=== PATIENT | female | born 1940 | race Caucasian/White ===

== ENCOUNTER 2017-11-17 08:31 | Inpatient (IN) | payer OTHER ==
[~2017-11-17] VITALS: Ht 165.1 cm; Wt 64.9 kg
--- NOTE | ~2017-11-17 | 2DMMODE ---
[facility] [address] [place] [address] 2 D/M-MODE ECHOCARDIOGRAM Name: UBALDORED BRUCETTE Room #: 207-P ADM IN M.R.#: [id number] Admission: 11/17/17 Attend Phys: Janak Guo, Discharge: Date of : 42 Date of Service: 11/17/17 1430 Report #: [id number] THIS REPORT FOR: //name// APPROVED REPORT Study performed: 11/17/2017 13:29:30 EXAM: Comprehensive 2D, Doppler, and color-flow Echocardiogram Patient Location: Bedside Room #: 207 Status: routine BSA: 1.70 HR: 83 bpm BP: 99/57 mmHg Other Information Study Quality: Good Indications Atrial Fibrillation Syncope 2D Dimensions RVDd: 32.58 mm LVEF(%): 63.07 (>50%) IVSd: 9.37 (7-11mm) LVOT Diam: 19.19 (18-24mm) LVDd: 35.22 mm PWd: 9.37 (7-11mm) Ascending Ao: 30.58 (22-36mm) LVDs: 23.47 (25-40mm) Aortic Root: 36.19 mm IVC: 19.00 mm Matt's LVEF: 63.07 % Volumes Left Atrial Volume (Systole) Single Plane 4CH: 50.43 mL Single Plane 2CH: 54.98 mL LA ESV Index: 33.00 mL/m2 Aortic Valve AoV Peak Fam.: 0.88 m/s AO Peak Gr.: 3.12 mmHg LVOT Max P.79 mmHg LVOT Max V: 0.83 m/s MIGUEL Vmax: 2.73 cm2 Mitral Valve IVRT: 73.82 ms [facility] [address] [place] [address] 2 D/M-MODE ECHOCARDIOGRAM Name: RED FELTON ARNOLD Room #: [address] [place] [address] IN .R.#: [id number] Admission: 11/17/17 Attend Phys: Janak Guo, Discharge: Date of : 42 Date of Service: 11/17/17 1430 Report #: [id number] Pulmonary Valve PV Peak Fam.: 0.83 m/s PV Peak Gr.: 2.80 mmHg KY End Vmax: 0.93 m/s Tricuspid Valve TR Peak Fam.: 1.95 m/s TR Peak Gr.: 15.16 mmHg PA Pressure: 20.00 mmHg Left Ventricle The left ventricle is normal size. There is normal left ventricular wall thickness. The left ventricular systolic function is normal. The left ventricular ejection fraction is within the normal range. LVEF is 60-65%. This study is not technically sufficient to allow evaluation of the LV diastolic function due to atrial fibrillation. Right Ventricle The right ventricle is normal size. The right ventricular systolic function is normal. Atria Left atrium is at the upper limits of normal. The right atrium size is normal. Aortic Valve The aortic valve is normal in structure. No aortic regurgitation is present. There is no aortic valvular stenosis. Mitral Valve The mitral valve is normal in structure. Mild mitral regurgitation. No evidence of mitral valve stenosis. Tricuspid Valve The tricuspid valve is normal in structure. There is trace tricuspid regurgitation. Estimated PAP 20 mmHg. There is no pulmonary hypertension. Pulmonic Valve The pulmonary valve is normal in structure. Trace to mild pulmonic regurgitation. Great Vessels The aortic root is normal in size. IVC is normal in size and collapses >50% with inspiration. [facility] [address] [place] [address] 2 D/M-MODE ECHOCARDIOGRAM Name: PURNIMARED ARNOLD Room #: 207-P [facility] IN M.R.#: [id number] Admission: 11/17/17 Attend Phys: Janak Guo, Discharge: Date of : 42 Date of Service: 11/17/17 1430 Report #: [id number] Pericardium There is no pericardial effusion. <Conclusion> The left ventricle is normal size. There is normal left ventricular wall thickness. The left ventricular systolic function is normal. The right ventricle is normal size. Left atrium is at the upper limits of normal. There is no aortic valvular stenosis. Mild mitral regurgitation. There is trace tricuspid regurgitation. Estimated PAP 20 mmHg. There is no pericardial effusion. <ELECTRONICALLY SIGNED> By: Baldomero Hooker MD 11/17/17 [phone] Baldomero Hooker MD /INF
--- NOTE | ~2017-11-17 | EKG ---
[place] [address] [facility] [address] [place] [address] ELECTROCARDIOGRAM REPORT Name: SARAH FELTONPRIMO BARRETT Room #: 207-P ADM IN M.R.#: [id number] Admission: 11/17/17 Attend Phys: Janak Guo DO Discharge: Date of : 42 Report #: [id number] THIS REPORT FOR: //name// [facility] ED Test Date: 2017-11-17 Test Time: 08:39:23 Pat Name: RED FELTON Department: Room: [facility] Gender: F Commissary Officer: MIROSLAVA : 1940 Requested By: Andria Fang Order Number: [id number] MD: Pablo Smith Measurements Intervals [place] Rate: 129 P: RI: QRS: 72 QRSD: 88 T: 27 QT: 323 QTc: 474 Interpretive Statements Atrial fibrillation Borderline ST depression, diffuse leads Borderline prolonged QT interval Compared to ECG 08/13/2014 14:05:25 Atrial fibrillation has replaced sinus rhythm Electronically Signed On 11-19-2017 15:08:09 TELEPHONE INTERCEPTOR OPERATOR by Pablo Smith [email or web address] <ELECTRONICALLY SIGNED> By: Pablo Smith MD, [facility] 11/19/17 1508 [id number] Pablo Smith MD, [facility] /EPI
--- NOTE | ~2017-11-17 | HC ---
[facility] [address] [place] [address] CONSULTATION Name: RED FELTON Room #: 207-P [facility] IN M.R.#: [id number] Admission: 11/17/17 Attend Phys: Janak Guo DO Discharge: 11/20/17 Date of : 42 Report #: [id number] THIS REPORT FOR: //name// CC: Janak Arrington HISTORY OF PRESENT ILLNESS: This is a 76-year-old female patient referred for assessment and evaluation of atrial fibrillation. The patient has presented to the Emergency Room with episodes of dizziness and lightheadedness. She stated that she did have a syncopal episodes prior to admission and did hit her head, although did not apparently lose consciousness. Upon questioning, she states she has been having episodes like this for about 3-4 years, but had never been able to be captured or caught by her physicians. She does not have any syncope, near syncope and does not complain of chest pain, pressure, tightness or heaviness. In between these episodes, she is fine without any issues whatsoever. Her first syncopal episode was this one described above. She has no exertional tightness, heaviness or fullness. PAST MEDICAL HISTORY: 1. History of breast cancer, status post excisional biopsies. 2. Dyslipidemia. 3. Degenerative joint disease. 4. Acid peptic disease. 5. Stress incontinence. MEDICATIONS: At home are flaxseed oil, omega 3, Calcitrate ____, aspirin, CoQ10, red yeast rice, vitamin C, Genteal Gel drops ophthalmic, vitamin D3, VESIcare, Pepcid and alpha lipoic acid. ALLERGIES: No known drug allergies. PAST SURGICAL HISTORY: Significant for: 1. Excisional biopsies of her breast as stated above. 2. Colonoscopy. 3. D and C. 4. Tonsillectomy and adenoidectomy. ELECTROCARDIOGRAM: Demonstrated atrial fibrillation with rapid ventricular response of 129 beats per minute and nonspecific ST-T wave changes. SOCIAL HISTORY: The patient does not smoke or consume alcohol. Does not follow a particular exercise regimen or dietary restriction. FAMILY HISTORY: Noncontributory. REVIEW OF SYSTEMS: Except for symptoms previously mentioned and those commensurate with comorbid state, a 10-point review of system is negative. [address] [address] CONSULTATION Name: RED FELTON ARNOLD Room #: [address] [place] [address] IN M.R.#: [id number] Admission: 11/17/17 Attend Phys: Janak Guo DO Discharge: 11/20/17 Date of : 42 Report #: [id number] PHYSICAL EXAMINATION: GENERAL: Well-developed, well-nourished female resting comfortably in no acute distress. VITAL SIGNS: Noted and reviewed in the chart. HEENT: Normocephalic, atraumatic. Pupils are equal, round, reactive to light and accommodation. Extraocular muscles are intact. Sclerae and conjunctivae are anicteric. NECK: JVD is normal. Carotid upstrokes are bilaterally symmetrical. No bruits are heard. No thyromegaly. No lymphadenopathy. LUNGS: Clear to auscultation. No wheezes, rhonchi or crackles. No CVA tenderness. CARDIAC: This is an irregular rhythm, controlled rate. Soft systolic murmur. ABDOMEN: Soft, nontender, nondistended. Normal bowel sounds. EXTREMITIES: Without cyanosis, clubbing or edema. Distal pulses are intact. DTR symmetrical. NEUROLOGIC: Cranial nerves 2-12 are grossly normal and symmetrical. PSYCHIATRIC: Alert, oriented with normal affect. SKIN: Warm and dry. LABORATORY DATA: Potassium of 3.8, BUN and creatinine of 12 and 1.1. Thyroid studies demonstrate a TSH of 4.14, which is slightly elevated. Troponin is less than 0.04. H and H 13.3 and 38.9 with a platelet count of 129,000. RADIOLOGY: CT scan failed to demonstrate any acute intracranial processes. Chest x-ray is without acute changes. IMPRESSION: 1. Dizziness and lightheadedness clearly secondary to paroxysmal atrial fibrillation. She has been slowed on IV diltiazem and in view of her elevated CHADS-VASc score warrants anticoagulation. We discussed options and in individuals greater than 70 years of age, the Eliquis is the best option based on effectiveness of preventing embolic events and risk of bleeding. We will get that calculated for her daily dose and initiate. She will also need to have rate control and we had initiated oral diltiazem to control the rate. We will then complete full evaluation as an outpatient for ischemic origin since her echocardiogram showed no significant segmental abnormalities. 2. Dyslipidemia. Discussed [employer] step 1 diet with her. We will get her a handout from the office when available. 3. Acid peptic disease on medications and asymptomatic at the present time. <ELECTRONICALLY SIGNED> By: Joel Jauregui MD 12/01/17 1029 [id number] [id number] Joel Jauregui MD /nt
[~2017-11-17 08:31] MED LIST: ALLEGRA ALLERG180 MG PO; ALPHA LIPOIC A300 MG PO; ARIMIDEX1 MG PO; ASPIRIN EC81 M1 PO; CAL-CITRATE PL1 EACH PO; CO Q-10100 MG PO; DAILY VITE1 EACH PO; DETROL LA2 MG PO; FISH OIL 1,0001 EAC5 PO; FLAXSEED1000 MG PO; GENTEAL GEL DRO15 ML OPHTHALMIC; GLUCOSAMINE1000 MG PO; METAMUCIL PACK1 EACH PO; METAMUCIL197.2 GM PO; MULTIVITAMINS1 EAC7 PO; OMEGA-31000 M1 PO; PEPCID20 MG PO; RED YEAST RICE600 MG PO; VESICARE 5 MG TA5 M1 PO; VITAMIN C + RO500 MG PO; VITAMIN D1000 UNI1 PO; VITAMIN D5000 UNIT PO; VITAMINC500 PO; ZOFRAN ODT4 MG PO
[2017-11-17 08:37] VITALS: BP 125/62
[2017-11-17] MEDS ORDERED: VESICARE 5 MG TA5 MG PO (08:49)
[2017-11-17 09:10] LABS: ABSOLUTE NEUTROPHILS 3.1 thou/uL (1.4-8.2); BASOPHILS 0.6 % (0.0-2.0); EOSINOPHILS 0.4 % (0.0-3.0); HEMATOCRIT 38.9 % (37.0-47.0); HEMOGLOBIN 13.3 gm/dL (12.0-15.0); LYMPHOCYTES 20.5 % (24.0-44.0); MCH 31.1 pg (26.0-34.0); MCHC 34.1 g/dL (28.0-37.0); MCV 91.3 fL (80.0-100.0); MONOCYTES 9.1 % (1.0-8.0); PLATELET COUNT 129 thou/uL (150-400); POLYS 69.4 % (36.0-66.0); RBC 4.27 mil/uL (4.20-5.00); RDW 13.3 % (10.5-14.5); WBC 4.4 thou/uL (4.0-11.0)
[2017-11-17 09:22] LABS: ANION GAP 11 mmol/L (7-16); BUN 12 mg/dL (7-18); CALCIUM 8.8 mg/dL (8.5-10.1); CHLORIDE 104 mmol/L (98-107); CO2 25 mmol/L (21-32); CREATININE 1.1 mg/dL (0.6-1.0); GLUCOSE 125 mg/dL (74-106); POTASSIUM 3.8 mmol/L (3.5-5.1); SODIUM 140 mmol/L (136-145)
[2017-11-17 09:24] LABS: APTT 37.3 Seconds (24.5-32.8); PROTIME 9.9 Seconds (9.3-11.4)
[2017-11-17 09:31] LABS: MAGNESIUM 1.7 mg/dL (1.8-2.4); TROPONIN-I < 0.04 ng/mL (<0.06)
[2017-11-17 10:20] LABS: URINE BILIRUBIN NEGATIVE (Negative); URINE BLOOD NEGATIVE (Negative); URINE CLARITY CLEAR; URINE COLOR YELLOW; URINE GLUCOSE-RANDOM* NEGATIVE (Negative); URINE KETONES 1+ (Negative); URINE LEUKOCYTES-REFLEX NEGATIVE (Negative); URINE NITRITE-REFLEX NEGATIVE (Negative); URINE PROTEIN (DIPSTICK) NEGATIVE (Negative); URINE UROBILINOGEN 0.2 E.U./dl (0.2-1.0)
[2017-11-17 11:37] VITALS: BP 112/62
[2017-11-17 12:11] VITALS: BP 99/57
[2017-11-17 16:23] VITALS: BP 112/51
[2017-11-17 20:40] VITALS: BP 115/61
[2017-11-18 00:08] VITALS: BP 115/61
[2017-11-18 04:25] VITALS: BP 104/53
[2017-11-18 04:54] LABS: ANION GAP 7 mmol/L (7-16); BUN 13 mg/dL (7-18); CALCIUM 8.5 mg/dL (8.5-10.1); CHLORIDE 107 mmol/L (98-107); CHOLESTEROL 140 mg/dL (<200); CO2 25 mmol/L (21-32); CREATININE 0.8 mg/dL (0.6-1.0); GLUCOSE 97 mg/dL (74-106); HDL CHOLESTEROL 44 mg/dL (>40); LDL CHOLESTEROL 78 mg/dL (<100); POTASSIUM 4.5 mmol/L (3.5-5.1); SODIUM 139 mmol/L (136-145); TC:HDL 3.2 Ratio (Not establshd); TRIGLYCERIDE 90 mg/dL (<150); VLDL 18 mg/dL (<40)
[2017-11-18 07:22] VITALS: BP 96/51
[2017-11-18 11:14] VITALS: BP 93/48
[2017-11-18 15:06] VITALS: BP 95/59
[2017-11-18 20:20] VITALS: BP 121/59
[2017-11-19 04:12] VITALS: BP 126/74
[2017-11-19 07:45] VITALS: BP 120/64
[2017-11-19] MEDS ORDERED: ELIQUIS5 MG PO (08:08)
[2017-11-19 11:35] VITALS: BP 107/53
[2017-11-19 16:10] VITALS: BP 109/67
[2017-11-19 20:04] VITALS: BP 96/61
[2017-11-20 03:51] VITALS: BP 109/64
[2017-11-20 08:00] VITALS: BP 115/56
[2017-11-20] MEDS ORDERED: CARDIZEM CD180 MG PO (08:02)
[2017-11-20 10:33] VITALS: BP 115/56
[2017-11-20 10:38] VITALS: BP 115/56
[2017-11-20 11:44] VITALS: BP 115/56
== END 2017-11-20 11:20 | disposition home or self-care (01) | DRG 308 ==
LOC: ER 08:31 → 2N 10:44 → EROBS 10:44 → 2N 11:44 → ENTRNSPT 11-20 11:14 → EDTRNSPTSTS 11-20 11:15 → 2N 11-20 11:20
PROVIDERS: Emergency Medicine; Nurse Practitioner
DX: I48.0 Paroxysmal atrial fibrillation (principal); E43 Unspecified severe protein-calorie malnutrition; E87.6 Hypokalemia; E78.5 Hyperlipidemia, unspecified; K30 Functional dyspepsia; Z66 Do not resuscitate; M19.90 Unspecified osteoarthritis, unspecified site; E83.42 Hypomagnesemia; Z79.01 Long term (current) use of anticoagulants; Z82.49 Family history of ischemic heart disease and other diseases of the circulatory system; Z86.718 Personal history of other venous thrombosis and embolism; Z90.13 Acquired absence of bilateral breasts and nipples; Z85.3 Personal history of malignant neoplasm of breast; Z79.82 Long term (current) use of aspirin; Z79.899 Other long term (current) drug therapy; Z68.23 Body mass index [BMI] 23.0-23.9, adult
CPT/HCPCS: 10081

== ENCOUNTER → 2018-04-23 | Outpatient (CLI) | payer OTHER ==
[~2018-04-23] MED LIST changes: +CARDIZEM CD180 MG PO; +ELIQUIS5 MG PO; +VESICARE 5 MG TA5 MG PO
== END ==
LOC: NUC 08:36
DX: M85.89 Other specified disorders of bone density and structure, multiple sites (principal); E78.5 Hyperlipidemia, unspecified; I48.0 Paroxysmal atrial fibrillation; Z78.0 Asymptomatic menopausal state

== ENCOUNTER → 2019-07-25 | Outpatient (CLI) | payer OTHER | LOC: NUC 07-17 08:26 | DX: M85.80 Other specified disorders of bone density and structure, unspecified site (principal); E28.39 Other primary ovarian failure ==

== ENCOUNTER → 2020-09-11 | Outpatient (CLI) | payer OTHER | LOC: SJCVCIMAG 08:11 | PROVIDERS: ATTEND Internal Medicine | DX: I08.8 Other rheumatic multiple valve diseases (principal); I48.0 Paroxysmal atrial fibrillation; Z79.899 Other long term (current) drug therapy ==

== ENCOUNTER → 2020-10-05 | Outpatient (CLI) | payer OTHER | LOC: SJCVC 15:47 | PROVIDERS: ATTEND Internal Medicine | DX: R00.2 Palpitations (principal); I48.0 Paroxysmal atrial fibrillation; I25.10 Atherosclerotic heart disease of native coronary artery without angina pectoris; E78.00 Pure hypercholesterolemia, unspecified; Z88.8 Allergy status to other drugs, medicaments and biological substances ==

== ENCOUNTER → 2020-10-13 | Outpatient (CLI) | payer OTHER | LOC: SJCVCIMAG 09:14 | PROVIDERS: ATTEND Internal Medicine | DX: I08.1 Rheumatic disorders of both mitral and tricuspid valves (principal); I48.0 Paroxysmal atrial fibrillation; R00.2 Palpitations; I25.10 Atherosclerotic heart disease of native coronary artery without angina pectoris ==

== ENCOUNTER → 2021-09-13 | Outpatient (CLI) | payer OTHER | LOC: NUC 09:00 → RAD 09:18 → NUC 10:43 | PROVIDERS: ATTEND Internal Medicine Hematology & Oncology | DX: Z13.820 Encounter for screening for osteoporosis (principal); C50.811 Malignant neoplasm of overlapping sites of right female breast; C50.812 Malignant neoplasm of overlapping sites of left female breast; Z17.0 Estrogen receptor positive status [ER+]; R52 Pain, unspecified; M85.88 Other specified disorders of bone density and structure, other site ==

== ENCOUNTER → 2021-11-16 | Outpatient (CLI) | payer MEDICARE | LOC: ULTRA 09:02 | PROVIDERS: ATTEND Family Medicine | DX: I83.893 Varicose veins of bilateral lower extremities with other complications (principal); M79.604 Pain in right leg; M79.605 Pain in left leg; M79.89 Other specified soft tissue disorders ==